=== PATIENT | male | born 1970 | race Caucasian/White ===

== ENCOUNTER 2017-03-25 18:35 | Emergency (ER) | payer OTHER ==
[~2017-03-25] VITALS: Ht 193 cm; Wt 157.4 kg
[2017-03-25 18:44] VITALS: BP 164/77; PULSE 94; RESP 20; TEMP 97.8; O2SAT 99
--- NOTE | 2017-03-25 18:51 | NUR ---
Pt placed to ER waiting room in stable condition. Urine specimen cup provided.
--- NOTE | 2017-03-25 19:47 | NUR ---
Patient to ER bed 4 to gown for evaluation. Side rails up. Report given to Rachell OLSON.
--- NOTE | 2017-03-25 20:00 | NUR ---
Patient to ER C/O dull abdominal pain 8/10, pressure and nausea/vomitnign for the past 6 weeks. Patient states that immediately after eating or drinking he is nauseated and often vomits stomach contents. Patient states that he stopped drinking about 3 months ago and acknowledges that he used to drink alot for a long time. AAOx4, unlabored breathing, abdominal distension and tended with palpation, no active vomiting, no acute distress.
--- NOTE | 2017-03-25 20:03 | NUR ---
ER MD Mejía at bedside evaluating the patient
[2017-03-25 20:21] LABS: BILIRUBIN,URINE 2+ (NEGATIVE); BLOOD, URINE NEGATIVE (NEGATIVE); CLARITY/URINE HAZY (CLEAR); COLOR,URINE AMBER (YELLOW); GLUCOSE,URINE NEGATIVE (NEGATIVE); KETONES,URINE TRACE (NEGATIVE); LEUKOCYTE ESTERASE ,URINE NEGATIVE (NEGATIVE); NITRITE, URINE POSITIVE (NEGATIVE); PH,URINE 6.5 (5.0-8.0); PROTEIN URINE 1+ (NEGATIVE)
[2017-03-25 20:38] LABS: BASOPHILS % (AUTO) 0.4 % (0.0-2.0); EOSINOPHILS # (AUTO) 0.1 K/uL (0.0-0.4); HEMATOCRIT 40.5 % (36-54); HEMOGLOBIN 13.5 g/dL (14.0-18.0); LYMPHOCYTES # (AUTO) 1.7 K/uL (1.0-5.5); LYMPHOCYTES % (AUTO) 18.4 % (20.5-51.5); MEAN CORPUSCULAR HEMOGLOBIN 34 pg (27-31); MEAN CORPUSCULAR HGB CONC 33 % (32-36); MEAN CORPUSCULAR VOLUME 101 fL (79.0-98.0); MONOCYTES # (AUTO) 0.4 K/uL (0.0-1.0); MONOCYTES % (AUTO) 4.9 % (1.7-9.3); NEUTROPHILS % (AUTO) 75.3 % (40.0-70.0); PLATELET COUNT (AUTO) 182 K/uL (130-430); RED BLOOD CELL COUNT(AUTO) 4.02 MIL/uL (4.2-6.2); RED CELL DISTRIBUTION WIDTH 12.7 % (9.0-15.0); WHITE BLOOD COUNT (AUTO) 9.2 K/uL (4.8-10.8)
[2017-03-25 20:43] LABS: BACTERIA,URINE FEW /HPF (None Seen); RBC,URINE 0-3 /HPF (0-3)
[2017-03-25 20:44] LABS: CALCIUM 9.5 mg/dL (8.4-11.0); CREATININE 1.01 mg/dL (0.55-1.30); POTASSIUM 3.2 mmol/L (3.5-5.1)
[2017-03-25 20:44] LABS: CALCIUM OXALATE CRYSTALS,UR 0-10 /HPF (None Seen); FINE GRANULAR CASTS,URINE 0-10 /LPF (None Seen); HYALINE CASTS, URINE 0-10 /LPF (None Seen); MUCUS,URINE 3+ /LPF (None Seen); URINE AMORPHOUS URATE 2+ /HPF (None Seen)
[2017-03-25 20:49] LABS: TOTAL BILIRUBIN 3.8 mg/dL (0.0-1.0); TOTAL PROTEIN, SERUM 8.1 g/dL (6.4-8.3)
[2017-03-25] MEDS ORDERED: MAG HYDROX/AL HYDROX/SIMETH 30 ML, BELLADONNA ALKALOIDS/PHENOBARB 10 ML, LIDOCAINE VISC... PO ONE ×3 (21:15)
[2017-03-25] MEDS ORDERED: FAMOTIDINE 20 MG TABLET PO ONE (21:15)
--- NOTE | 2017-03-25 21:52 | NUR ---
field map technician at bedside for US
--- NOTE | 2017-03-25 22:30 | NUR ---
ER MD Mejía at [facility] discussing plpan of care and discharge
[2017-03-25 22:48] VITALS: BP 135/73; PULSE 87; RESP 16; TEMP 98; O2SAT 97
--- NOTE | 2017-03-25 22:48 | NUR ---
Patient given written and verbal discharge instructions and verbalizes understanding. ER MD Mejía discussed with patient the results and treatment provided. Patient in stable condition. ID arm band removed. Rx of keflex, pepcid & zofran given. Patient educated on pain management and to follow up with PMD. Pain Scale 0/10. Opportunity for questions provided and answered.
== END 2017-03-25 22:48 | disposition home or self-care (01) ==
LOC: SED 18:35
DX: N39.0 Urinary tract infection, site not specified (principal); R03.0 Elevated blood-pressure reading, without diagnosis of hypertension
CPT/HCPCS: 36415; 74176; 76705; 80053; 81000; 82150; 83690; 85025; 87086; 99285; J2001

== ENCOUNTER 2017-07-16 06:24 | Day surgery (SDC) | payer OTHER ==
[~2017-07-16] VITALS: Ht 193 cm; Wt 142.4 kg
[2017-07-16] MEDS ORDERED: SEVOFLURANE 15 MIN GAS INH ONE (06:25)
[2017-07-16] MEDS ORDERED: DEXAMETHASONE SOD PHOSPHATE 4 MG/ML VIAL IVP ONE (06:25)
[2017-07-16] MEDS ORDERED: MEPERIDINE HCL/PF 100 MG/ML AMP IM ONE (06:25)
[2017-07-16] MEDS ORDERED: CEFAZOLIN 2 GM IVPB PREMIX 50 ML IV ONE (06:25)
[2017-07-16] MEDS ORDERED: LR 1,000 ML IV.SOLN IV ONE (06:25)
[2017-07-16] MEDS ORDERED: ROCURONIUM BROMIDE 10 MG/ML (ZEMURON) IV ONE (06:25)
[2017-07-16] MEDS ORDERED: MIDAZOLAM HCL 5 MG/ML VIAL (VERSED) IV ONE (06:25)
[2017-07-16] MEDS ORDERED: METOCLOPRAMIDE HCL 10 MG/2 ML VIAL IVP ONE (06:25)
[2017-07-16] MEDS ORDERED: NS 1000 ML BAG IV ONE (06:25)
[2017-07-16] MEDS ORDERED: fentaNYL CITRATE/PF 100 MCG/2 ML AMP IVP ONE (06:25)
[2017-07-16] MEDS ORDERED: NS IRRIG SOLN 1000 ML IR ONE (06:25)
[2017-07-16] MEDS ORDERED: PROPOFOL 200MG/ 20ML VIAL (DIPRIVAN) IV ONE (06:25)
[2017-07-16] MEDS ORDERED: CEFAZOLIN SOD 1 GM/ ISO 50 ML PREMIX IV ONE (07:00)
[2017-07-16] MEDS ORDERED: IOHEXOL 0 ML IV ONE (07:23)
[2017-07-16] MEDS ORDERED: LR 1,000 ML IV ONE (10:57)
[2017-07-16] MEDS ORDERED: NALBUPHINE HCL 10 MG/ML AMP IVP PRN (11:00)
[2017-07-16] MEDS ORDERED: ONDANSETRON HCL 4 MG/2 ML VIAL IVP PRN ×2 (11:00)
[2017-07-16] MEDS ORDERED: DIPHENHYDRAMINE INJ 50 MG/ML VIAL IVP PRN (11:00)
[2017-07-16] MEDS ORDERED: NALOXONE HCL 0.4 MG/ML AMP (NARCAN) IVP PRN (11:00)
[2017-07-16] MEDS ORDERED: ePHEDrine sulfate 50 MG/ML VIAL IVP PRN (11:00)
[2017-07-16] MEDS ORDERED: fentaNYL CITRATE/PF 100 MCG/2 ML AMP IVP PRN (11:00)
[2017-07-16] MEDS ORDERED: D5/0.45 NS 1,000 ML IV SCH (11:10)
[2017-07-16] MEDS ORDERED: HYDROmorphone 1 MG INJ. 1 MG/ML AMPUL IVP PRN (11:15)
[2017-07-16] MEDS ORDERED: HYDROcodone/ACETAMIN 5-325 MG TAB (NORCO/ VICODIN) PO PRN ×2 (11:15)
[2017-07-16 12:02] VITALS: BP_SYST 122
== END 2017-07-16 13:10 | disposition home or self-care (01) ==
LOC: SDS 06:24 → SMU 06:25 → SDS 13:10
PROVIDERS: ATTEND Colon & Rectal Surgery
DX: K80.10 Calculus of gallbladder with chronic cholecystitis without obstruction (principal); K82.8 Other specified diseases of gallbladder; E66.01 Morbid (severe) obesity due to excess calories; E55.9 Vitamin D deficiency, unspecified; Z98.890 Other specified postprocedural states; Z80.8 Family history of malignant neoplasm of other organs or systems; Z87.891 Personal history of nicotine dependence; Z68.41 Body mass index [BMI] 40.0-44.9, adult; Z79.899 Other long term (current) drug therapy; K21.9 Gastro-esophageal reflux disease without esophagitis
CPT/HCPCS: 49320; C1727; C1758; J0690; J7120; J1100; J2175; J2250; J2704; J2765; J3010; J7030; Q9967